=== PATIENT | male | born 1985 | race Caucasian/White ===

== ENCOUNTER 2016-07-03 09:40 | Emergency (ER) | payer BC ==
[2016-07-03 09:52] VITALS: BP 164/96
--- NOTE | 2016-07-03 10:13 | ED ---
Throat Pain/Nasal Congestion - HPI Summary HPI Summary: 30 male presents with complaints of increased facial swelling that he woke up with today from a dental infection. Patient states he was seen for the dental pain, swelling and infection yesterday 07/02/16 that began Friday night 07/01/16 and prescribed amoxicillin. He has taken 2 pills, 1 dose, of the antibiotic yesterday. Woke up this morning with increased swelling so he was nervous and wanted to be checked out again. Denies fever/chills. States his pain in very minimal. Denies discharge, erythema, and warmth. Denies PMHx. He has also been taking ibuprofen with last dose of 800mg being this morning [employer]. Denies difficulty breathing, throat swelling and chest pain. - History of Current Complaint Hx Obtained From: Patient Onset/Duration: Sudden Onset, Worse Since Severity: Mild Associated Signs And Symptoms: Negative: Dysphagia Cough: None <Marlene Simpson - Last Filed: 07/03/16 12:06> - HPI Summary HPI Summary: I was available for consultation. This patient was seen by mid level provider. The patient was not presented, seen, or examined by me. WR. <José Miguel Lemus - Last Filed: 07/04/16 08:26> - History of Current Complaint Chief Complaint: EDDentalPain Time Seen by Provider: 07/03/16 09:49 - Allergies/Home Medications Allergies/Adverse Reactions: Allergies Allergy/AdvReac Type Severity Reaction Status Date / Time No Known Allergies Allergy Verified 04/08/14 12:58 PMH/Surg Hx/FS Hx/Imm Hx Endocrine/Hematology History: Denies: Hx Diabetes Cardiovascular History: Denies: Hx Congestive Heart Failure, Hx Hypertension History: Denies: Hx Renal Disease - Surgical History Surgery Procedure, Year, and Place: none - Immunization History Date of Tetanus Vaccine: unknown Immunizations Up to Date: Yes Infectious Disease History: No Infectious Disease History: Denies: Traveled Outside the [place] in Last 30 Days - Family History Known Family History: Positive: None - Social History Alcohol Use: Rare Substance Use Type: Reports: None Smoking Status (MU): Never Smoked Tobacco <Marlene Simpson - Last Filed: 07/03/16 12:06> Review of Systems Constitutional: Negative Eyes: Negative Positive: Dental Pain - swelling Cardiovascular: Negative Respiratory: Negative Positive: Other - swelling of face/mouth Neurological: Negative Psychological: Normal All Other Systems Reviewed And Are Negative: Yes <Marlene Simpson - Last Filed: 07/03/16 12:06> Physical Exam Triage Information Reviewed: Yes Vital Signs On Initial Exam: Initial Vitals Temp Pulse Resp BP Pulse Ox 97.6 F 91 20 164/96 100 07/03/16 09:43 07/03/16 09:43 07/03/16 09:43 07/03/16 09:43 07/03/16 09:43 Hypertension noted, patient advised to follow up with PCP to have it monitored and re-checked. States he does hate being at doctors. Vital Signs Reviewed: Yes Appearance: Positive: Well-Appearing, No Pain Distress, Well-Nourished Skin: Positive: Warm, Skin Color Reflects Adequate Perfusion, Dry, Other - swelling of right cheek/ area above lip and surrounding nasal Head/Face: Positive: Normal Head/Face Inspection - besides swelling Eyes: Positive: Normal, Conjunctiva Clear ENT: Positive: Normal ENT inspection, Hearing grossly normal, Pharynx normal, TMs normal, Dental tenderness - front right tooth, Other - airway patent Dental: Positive: Percussion Tenderness @ - right maxillary sinus due to dental infection/abscess and swelling, Gross Decay/Caries @, Dental Fracture @, Abscess @ - hard palpable nodule felt above upper lip over area of right front tooth. non-fluctuant. not warm to touch. no visualized but palpated.. Negative : Cervical Lymphadenopathy, Bleeding Neck: Positive: Supple, Nontender, No Lymphadenopathy Respiratory/Lung Sounds: Positive: Clear to Auscultation, Breath Sounds Present , Decreased Breath Sounds Cardiovascular: Positive: Normal, RRR, Pulses are Symmetrical in both Upper and Lower Extremities Musculoskeletal: Positive: Normal Neurological: Positive: Sensory/Motor Intact, Alert, Oriented to Person Place, Time Psychiatric: Positive: Normal, Affect/Mood Appropriate <Marlene Simpson - Last Filed: 07/03/16 12:06> Vital Signs On Initial Exam: Initial Vitals Temp Pulse Resp BP Pulse Ox 97.6 F 91 20 164/96 100 07/03/16 09:43 07/03/16 09:43 07/03/16 09:43 07/03/16 09:43 07/03/16 09:43 <José Miguel Lemus - Last Filed: 07/04/16 08:26> Diagnostics - Vital Signs Vital Signs Temp Pulse Resp BP Pulse Ox 07/03/16 09:43 97.6 F 91 20 164/96 100 <Marlene Simpson - Last Filed: 07/03/16 12:06> - Vital Signs Vital Signs Temp Pulse Resp BP Pulse Ox 07/03/16 09:43 97.6 F 91 20 164/96 100 <José Miguel Lemus - Last Filed: 07/04/16 08:26> EENT Course/Dx - Course Course Of Treatment: Due to minimal pain, no pain management needed at this time. Patient was reassured the antibiotic he was taking was appropriate for his symptoms and he should give it at least 48 hours and 2-3 doses before seeing improvement. Ice and ibuprofen. Given lolicaine to use at home if pain increases. Patient is aware of worsening signs and symptoms, such as increased swelling, difficulty breathing and fever/chills. Patient does not have these complaints at this time. Since amoxicillin has not had appropriate time to kick in, will continue that. Symptoms worsen or do not improve return or call dentist to change antibiotic. Follow up with pcp about hypertension to have monitored. - Differential Diagnoses Differential Diagnoses: Dental Abscess, Dental Caries, Fractured Tooth, Periodontic Disease <Marlene Simpson - Last Filed: 07/03/16 12:06> <José Miguel Lemus - Last Filed: 07/04/16 08:26> - Diagnoses Provider Diagnoses: Pain, dental, Dental infection, Dental abscess Discharge <Marlene Simpson - Last Filed: 07/03/16 12:06> <José Miguel Lemus - Last Filed: 07/04/16 08:26> - Discharge Plan Condition: Stable Disposition: HOME Prescriptions: Ibuprofen TAB* [Motrin TAB* 800 MG] 800 mg PO Q6H #20 tab Patient Education Materials: Dental Abscess (ED) Forms: *Work Release Referrals: Amarjit RIDDLE,Eddy Cuenca [Primary Care Provider] - Additional Instructions: Take prescribed antibiotic given to you by your dentist. Give medication approximately 48-72 hours to see improvement. Also apply ice to area of pain/swelling and take 800mg ibuprofen for pain and inflammation. Take with food to avoid upset stomach. You may also want to try the Lolicaine if pain increases. IF symptoms do not improve or worsen even after 72 hours of taking antibiotics please return or be seen by your dentist to change antibiotic. If you have difficulty breathing or your throat is swelling please seek medical attention immediately. Keep appointment with dentist to have tooth removed. Drink water with fluoride and keep good dental hygiene. Follow up with pcp to monitor and re-check blood pressure.
== END 2016-07-03 10:34 | disposition home or self-care (01) ==
LOC: ED 09:40
DX: K04.7 Periapical abscess without sinus (principal); K08.89 Other specified disorders of teeth and supporting structures
CPT/HCPCS: 99281